=== PATIENT | female | born 1935 | race Caucasian/White ===

== ENCOUNTER 2016-12-25 12:45 | Emergency (ER) | payer BC, MEDICAID ==
[~2016-12-25] VITALS: Ht 154.9 cm; Wt 73.0 kg
--- NOTE | 2016-12-25 12:47 | NUR ---
AAOX3, BIB PRIVATE EMT FROM [facility], WORSENING CHRONIC BACK PAIN. RESP IS EVEN AND UNLABORED WITH NAD NOTED. SKIN IS WARM AND DRY. PERCOCET WAS GIVEN THIS AM. NO RECENT FALL OR TRAUMA REPORTED. AWAITING MD FOR EVAL.
--- NOTE | 2016-12-25 12:56 | NUR ---
DR RED AT BS FOR EVAL.
--- NOTE | 2016-12-25 13:07 | NUR ---
PAGED DR.HOOMAN MARTINEZ
[2016-12-25] MEDS ORDERED: AMLO5TAB2 PO (13:08)
[2016-12-25] MEDS ORDERED: OXYB5TAB11 PO (13:08)
[2016-12-25] MEDS ORDERED: ASCO500T8 PO (13:08)
[2016-12-25] MEDS ORDERED: FENT1PAT6 TD (13:08)
[2016-12-25] MEDS ORDERED: GABA-534 PO ×2 (13:08)
[2016-12-25] MEDS ORDERED: ONDA4TAB5 PO (13:08)
[2016-12-25] MEDS ORDERED: PANT40TA4 PO (13:08)
[2016-12-25] MEDS ORDERED: TRIA80CR12 TP (13:08)
[2016-12-25] MEDS ORDERED: DOCU-270 PO (13:08)
[2016-12-25] MEDS ORDERED: ACID1TAB12 PO (13:08)
[2016-12-25] MEDS ORDERED: DULO30CA2 PO (13:08)
[2016-12-25] MEDS ORDERED: MULT-659 PO (13:08)
[2016-12-25] MEDS ORDERED: AMIN30LI4 PO (13:08)
[2016-12-25] MEDS ORDERED: ALPR0.5T8 PO (13:08)
[2016-12-25] MEDS ORDERED: ACET-868 PO (13:08)
[2016-12-25] MEDS ORDERED: SERT100T12 PO (13:08)
[2016-12-25] MEDS ORDERED: TEMA30CA PO (13:08)
[2016-12-25] MEDS ORDERED: OXYC-34 PO (13:08)
[2016-12-25] MEDS ORDERED: MENT113G5 TP (13:08)
[2016-12-25] MEDS ORDERED: MAGN400O6 PO (13:08)
[2016-12-25] MEDS ORDERED: SIMV10TA6 PO (13:08)
[2016-12-25] MEDS ORDERED: CLOT15CR4 TP (13:08)
--- NOTE | 2016-12-25 13:20 | NUR ---
CALLED [facility] FOR TRANSPORT BACK TO [facility], ETA 1 HOUR-1 HOUR AND A HALF
--- NOTE | 2016-12-25 14:20 | NUR ---
ASSISTED PATIENT TO THE RESTROOM VIA WHEELCHAIR. PATIENT APPEARS STABLE AT THIS TIME.
[2016-12-25] MEDS ORDERED: oxyCODONE/APAP (5/325 MG) 1 UDTAB TABLET ONE (14:22)
[2016-12-25] MEDS ORDERED: oxyCODONE/APAP (5/325 MG) 1 UDTAB TABLET PO ONE (14:30)
[2016-12-25 15:15] VITALS: BP 147/83
--- NOTE | 2016-12-25 15:15 | NUR ---
Patient discharged to home in stable condition. Written and verbal after care instructions given. Patient verbalizes understanding of instruction.
== END 2016-12-25 15:25 | disposition home or self-care (01) ==
LOC: ER 12:49
DX: M54.16 Radiculopathy, lumbar region (principal); M54.12 Radiculopathy, cervical region; G89.29 Other chronic pain; I10 Essential (primary) hypertension; K21.9 Gastro-esophageal reflux disease without esophagitis; N32.81 Overactive bladder; G89.4 Chronic pain syndrome; F41.9 Anxiety disorder, unspecified; G62.9 Polyneuropathy, unspecified; G47.00 Insomnia, unspecified; D64.9 Anemia, unspecified; Z88.2 Allergy status to sulfonamides; Z88.1 Allergy status to other antibiotic agents
CPT/HCPCS: A4606; Z7610

== ENCOUNTER 2024-05-07 15:08 | Inpatient (IN) | payer MEDICARE, OTHER ==
[~2024-05-07] VITALS: Ht 144.8 cm; Wt 54.5 kg
[~2024-05-07 15:08] MED LIST: ACET-868 PO; ACID1TAB12 PO; ALPR0.5T8 PO; AMIN30LI4 PO; AMLO-212 PO; ASCO500T87 PO; CLOT15CR4 TP; DOCU-270 PO; DULO30CA2 PO; FENT1PAT6 TD; GABA-534 PO; MAGN400O6 PO; MENT113G5 TP; MULT-659 PO; ONDA4TAB5 PO; OXYB5TAB16 PO; OXYC-133 PO; PANT40TA49 PO; SERT100T12 PO; SIMV10TA98 PO; TEMA30CA PO; TRIA80CR12 TP
[2024-05-07] MEDS: IV NS 0.9% 1,000 ML BAG IV ONE (15:30)
[2024-05-07 15:55] LABS: BASOPHILS % (AUTO) 0.6 % (0.0-2.0); EOSINOPHILS # (AUTO) 0.3 K/uL (0.0-0.7); EOSINOPHILS % (AUTO) 5.3 % (0.0-6.0); HEMATOCRIT 35 % (33-45); HEMOGLOBIN 12.1 g/dL (11.5-14.8); LYMPHOCYTES # (AUTO) 1.1 K/uL (0.8-4.8); LYMPHOCYTES % (AUTO) 20.5 % (20.0-44.0); MEAN CORPUSCULAR HEMOGLOBIN 32 PG (26.0-33.0); MEAN CORPUSCULAR HGB CONC 35 g/dl (31.0-36.0); MEAN CORPUSCULAR VOLUME 93 fL (82-100); MONOCYTES # (AUTO) 0.6 K/uL (0.1-1.30); MONOCYTES % (AUTO) 11.8 % (2.0-12.0); NEUTROPHILS # (AUTO) 3.2 K/uL (1.8-8.9); NEUTROPHILS % (AUTO) 61.8 % (43.0-81.0); PLATELET COUNT (AUTO) 347 K/uL (150-450); RED BLOOD CELL COUNT(AUTO) 3.75 MIL/uL (4.0-5.2); RED CELL DISTRIBUTION WIDTH 14.4 % (11.5-15.0); WHITE BLOOD COUNT (AUTO) 5.1 K/uL (4.3-11.0)
[2024-05-07] MEDS: ACETAMINOPHEN ES 500 MG TABLET PO ONE (15:58)
[2024-05-07 16:05] LABS: INR 1.06 (0.91-1.10); PARTIAL THROMBOPLASTIN TIME 25.9 SEC (24.3-34.3); PROTHROMBIN TIME 11.2 SECS (9.2-11.1)
[2024-05-07 16:07] LABS: ALANINE AMINOTRANSFERASE 14 U/L (12-78); ALBUMIN 3.1 g/dL (3.4-5.0); ALKALINE PHOSPHATASE 64 U/L (46-116); ASPARTATE AMINOTRANSFERASE 15 U/L (15-37); BILIRUBIN,DIRECT 0.1 mg/dL (0.0-0.2); BILIRUBIN,TOTAL 0.4 mg/dL (0.2-1.0); CALCIUM, SERUM 8.8 mg/dL (8.5-10.1); CARBON DIOXIDE 27 mmol/L (21-32); CHLORIDE 101 mmol/L (98-107); CREATININE 1.2 mg/dL (0.6-1.3); GLUCOSE 162 mg/dL (74-106); POTASSIUM 3.4 mmol/L (3.5-5.1); SODIUM SERUM 138 mmol/L (136-145); TOTAL PROTEIN, SERUM 7.8 g/dL (6.4-8.2); UREA NITROGEN, BLOOD 41 mg/dL (7-18)
[2024-05-07 16:11] LABS: LACTIC ACID 1.2 mmol/L (0.4-2.0)
[2024-05-07] MEDS ORDERED: LIDO30AD10 TP (16:27)
[2024-05-07] MEDS ORDERED: MAGN400T8 PO (16:27)
[2024-05-07] MEDS ORDERED: OMEG100037 PO (16:27)
[2024-05-07] MEDS ORDERED: OMEP20CA15 PO (16:27)
[2024-05-07] MEDS ORDERED: CRAN300T PO (16:27)
[2024-05-07] MEDS ORDERED: MELA3TAB41 PO (16:27)
[2024-05-07] MEDS ORDERED: NAPR-1126 PO (16:27)
[2024-05-07] MEDS ORDERED: HYDR28.32 TP (16:27)
[2024-05-07] MEDS ORDERED: FERR325T23 PO (16:27)
[2024-05-07] MEDS ORDERED: CALC-261 PO (16:27)
[2024-05-07] MEDS ORDERED: DICL100G34 TP (16:27)
[2024-05-07] MEDS ORDERED: DULO20CA PO (16:27)
[2024-05-07] MEDS ORDERED: ACID1CAP3 PO (16:27)
[2024-05-07] MEDS ORDERED: TRAZ-182 PO (16:27)
[2024-05-07] MEDS ORDERED: BUPR150F3 BU (16:27)
[2024-05-07 16:31] LABS: APPEARANCE,URINE TURBID (CLEAR); BILIRUBIN,URINE 2+ (NEGATIVE); BLOOD, URINE 1+ Ery/uL (NEGATIVE); COLOR,URINE YELLOW (YELLOW); KETONES,URINE TRACE mg/dL (NEGATIVE); LEUKOCYTE ESTERASE ,URINE 2+ (NEGATIVE); NITRITE, URINE NEGATIVE (NEGATIVE); PROTEIN,URINE 1+ mg/dl (NEGATIVE); UGLUCOSE NEGATIVE (NEGATIVE); UROBILINOGEN,URINE 0.2 EU/dL (0.2)
[2024-05-07 16:36] LABS: ADD URINE CULTURE YES; BACTERIA,URINE 1+ /HPF (None Seen)
[2024-05-07 16:37] LABS: WBC,URINE 51-80 /HPF (0-3)
[2024-05-07] MEDS: DIGOXIN INJ 0.5 MG/2 ML AMPUL IV ONE (16:50)
[2024-05-07] MEDS: CEFTRIAXONE 1GM BAG (ER ONLY) 1 GM/50 ML PIGGYBACK IV ONE (16:58)
[2024-05-07] MEDS ORDERED: Z GUARD REMEDY 4 OZ OINT TP PRN (18:00)
[2024-05-07] MEDS ORDERED: MAGNESIUM HYDROXIDE 30 ML UDC PO PRN (18:00)
[2024-05-07] MEDS: GABAPENTIN 300 MG CAPSULE PO SCH (22:43)
[2024-05-07] MEDS: SIMVASTATIN 10 MG TABLET PO SCH (22:43)
[2024-05-07] MEDS: TRAZODONE 50 MG TABLET PO SCH (22:43)
[2024-05-07] MEDS ORDERED: POTASSIUM CHLORIDE 10 MEQ TABLET.SA ONE (22:44)
[2024-05-07] MEDS: Magnesium 1GM/D5W 100ML PREMIX 100 ML IV SCH (22:45)
[2024-05-07] MEDS: POTASSIUM CHLORIDE 10 MEQ TABLET.SA PO ONE (22:57)
[2024-05-08] VITALS (7 sets, daily range): BP systolic 132–164; BP diastolic 93–118; TEMP 97.5–98.6; O2SAT 96–98
[2024-05-08] MEDS: IV NS 0.9% 1,000 ML IV PRN (01:46)
[2024-05-08] MEDS ORDERED: ENOXAPARIN SODIUM 60 MG/0.6 ML DISP.SYRIN SQ SCH (06:00)
[2024-05-08] MEDS: ENOXAPARIN SODIUM 60 MG/0.6 ML DISP.SYRIN SQ SCH (06:06)
[2024-05-08 06:46] LABS: BASOPHILS % (AUTO) 0.5 % (0.0-2.0); EOSINOPHILS # (AUTO) 0.4 K/uL (0.0-0.7); EOSINOPHILS % (AUTO) 7.7 % (0.0-6.0); HEMATOCRIT 33 % (33-45); HEMOGLOBIN 11.2 g/dL (11.5-14.8); LYMPHOCYTES # (AUTO) 1.2 K/uL (0.8-4.8); LYMPHOCYTES % (AUTO) 22.5 % (20.0-44.0); MEAN CORPUSCULAR HEMOGLOBIN 32 PG (26.0-33.0); MEAN CORPUSCULAR HGB CONC 34 g/dl (31.0-36.0); MEAN CORPUSCULAR VOLUME 94 fL (82-100); MONOCYTES # (AUTO) 0.7 K/uL (0.1-1.30); MONOCYTES % (AUTO) 12.7 % (2.0-12.0); NEUTROPHILS # (AUTO) 2.9 K/uL (1.8-8.9); NEUTROPHILS % (AUTO) 56.6 % (43.0-81.0); PLATELET COUNT (AUTO) 304 K/uL (150-450); RED BLOOD CELL COUNT(AUTO) 3.52 MIL/uL (4.0-5.2); RED CELL DISTRIBUTION WIDTH 14.2 % (11.5-15.0); WHITE BLOOD COUNT (AUTO) 5.2 K/uL (4.3-11.0)
[2024-05-08 07:14] LABS: CALCIUM, SERUM 8.5 mg/dL (8.5-10.1); CARBON DIOXIDE 28 mmol/L (21-32); CHLORIDE 100 mmol/L (98-107); CREATININE 0.8 mg/dL (0.6-1.3); GLUCOSE 106 mg/dL (74-106); MAGNESIUM 2.2 mg/dL (1.8-2.4); PHOSPHORUS 2.4 mg/dL (2.5-4.9); POTASSIUM 3.2 mmol/L (3.5-5.1); SODIUM SERUM 138 mmol/L (136-145); UREA NITROGEN, BLOOD 24 mg/dL (7-18)
[2024-05-08] MEDS: PANTOPRAZOLE 40 MG TABLET.DR PO SCH (07:30)
[2024-05-08] MEDS ORDERED: AMIODARONE 150 MG in IV D5W 100 ML IV ONE (08:00)
[2024-05-08] MEDS ORDERED: AMIODARONE 450 MG in IV D5W 250 ML IV PRN (08:00)
[2024-05-08] MEDS: POTASSIUM CHLORIDE 20 MEQ TAB.PRT.SR PO SCH (08:00)
[2024-05-08] MEDS: AMIODARONE 150 MG in IV D5W 100 ML IV ONE (08:43)
[2024-05-08] MEDS: DULOXETINE HCL 20 MG CAPSULE.DR PO SCH (09:00)
[2024-05-08] MEDS: FERROUS SULFATE (325 MG) 325 MG/TAB TABLET PO SCH (09:00)
[2024-05-08] MEDS: DOCUSATE SODIUM 100 MG CAPSULE PO SCH (09:00)
[2024-05-08] MEDS ORDERED: BUPRENORPHINE HCL 150 MCG BU SCH (09:00)
[2024-05-08] MEDS: OXYBUTYNIN CHLORIDE 5 MG TABLET PO SCH (09:00)
[2024-05-08] MEDS: AMIODARONE 450 MG in IV D5W 241 ML IV PRN (09:05)
[2024-05-08] MEDS: POTASSIUM CL. PREMIX PERIPHER. 50 ML IV SCH (11:34)
[2024-05-08] MEDS: K PHOS NEUTRAL 250 MG TABLET PO ONE (15:57)
[2024-05-08] MEDS: CEFTRIAXONE 1 G in IV D5W 50 ML IV SCH (17:05)
[2024-05-08] MEDS: ONDANSETRON HCL/PF 4 MG/2 ML VIAL IVP PRN (20:27)
[2024-05-08] MEDS ORDERED: ENOXAPARIN SODIUM 80 MG/0.8 ML DISP.SYRIN SQ SCH (21:30)
[2024-05-09] VITALS: BP 155/111; TEMP 98.4; O2SAT 95
[2024-05-09 04:00] VITALS: BP 139/111; TEMP 99.5; O2SAT 95
[2024-05-09 08:00] VITALS: BP 173/120; TEMP 97.7; O2SAT 94
[2024-05-09 09:10] LABS: BASOPHILS % (AUTO) 0.2 % (0.0-2.0); EOSINOPHILS # (AUTO) 0.1 K/uL (0.0-0.7); HEMATOCRIT 37 % (33-45); HEMOGLOBIN 12.5 g/dL (11.5-14.8); LYMPHOCYTES # (AUTO) 1.1 K/uL (0.8-4.8); LYMPHOCYTES % (AUTO) 17.8 % (20.0-44.0); MEAN CORPUSCULAR HEMOGLOBIN 31 PG (26.0-33.0); MEAN CORPUSCULAR HGB CONC 34 g/dl (31.0-36.0); MEAN CORPUSCULAR VOLUME 93 fL (82-100); MONOCYTES # (AUTO) 0.7 K/uL (0.1-1.30); MONOCYTES % (AUTO) 11.4 % (2.0-12.0); NEUTROPHILS # (AUTO) 4.5 K/uL (1.8-8.9); NEUTROPHILS % (AUTO) 69.6 % (43.0-81.0); PLATELET COUNT (AUTO) 357 K/uL (150-450); RED CELL DISTRIBUTION WIDTH 14.1 % (11.5-15.0); WHITE BLOOD COUNT (AUTO) 6.4 K/uL (4.3-11.0)
[2024-05-09] MEDS: hydrALAZINE HCL 50 MG TABLET PO SCH (09:46)
[2024-05-09] MEDS: METOPROLOL TARTRATE 50 MG TABLET PO SCH (09:46)
[2024-05-09 12:00] VITALS: BP 117/85; TEMP 97.9; O2SAT 94
[2024-05-09] MEDS: GABAPENTIN 300 MG CAPSULE PO SCH (12:41)
[2024-05-09 14:05] LABS: CALCIUM, SERUM 8.4 mg/dL (8.5-10.1); CARBON DIOXIDE 23 mmol/L (21-32); CHLORIDE 91 mmol/L (98-107); CREATININE 0.6 mg/dL (0.6-1.3); GLUCOSE 142 mg/dL (74-106); MAGNESIUM 1.4 mg/dL (1.8-2.4); PHOSPHORUS 2.7 mg/dL (2.5-4.9); SODIUM SERUM 126 mmol/L (136-145); UREA NITROGEN, BLOOD 10 mg/dL (7-18)
[2024-05-09 16:00] VITALS: BP 110/73; TEMP 98.4; O2SAT 94
[2024-05-09 20:00] VITALS: BP 117/93; TEMP 100.1; O2SAT 95
[2024-05-09] MEDS: ACETAMINOPHEN 325 MG TABLET PO PRN (21:33)
[2024-05-09] MEDS: POTASSIUM CHLORIDE 20 MEQ TAB.PRT.SR PO ONE (22:00)
[2024-05-09] MEDS: GABAPENTIN 100 MG CAPSULE PO SCH (22:00)
[2024-05-10] VITALS: BP 92/62; TEMP 98.8; O2SAT 95
[2024-05-10 04:00] VITALS: BP 120/58; TEMP 97.7; O2SAT 95
[2024-05-10 07:45] LABS: BASOPHILS % (AUTO) 0.2 % (0.0-2.0); EOSINOPHILS # (AUTO) 0.1 K/uL (0.0-0.7); EOSINOPHILS % (AUTO) 1.4 % (0.0-6.0); HEMATOCRIT 34 % (33-45); HEMOGLOBIN 11.3 g/dL (11.5-14.8); LYMPHOCYTES # (AUTO) 1.3 K/uL (0.8-4.8); LYMPHOCYTES % (AUTO) 25.3 % (20.0-44.0); MEAN CORPUSCULAR HEMOGLOBIN 32 PG (26.0-33.0); MEAN CORPUSCULAR HGB CONC 34 g/dl (31.0-36.0); MEAN CORPUSCULAR VOLUME 94 fL (82-100); MONOCYTES # (AUTO) 0.9 K/uL (0.1-1.30); MONOCYTES % (AUTO) 17.3 % (2.0-12.0); NEUTROPHILS # (AUTO) 2.9 K/uL (1.8-8.9); NEUTROPHILS % (AUTO) 55.8 % (43.0-81.0); PLATELET COUNT (AUTO) 317 K/uL (150-450); RED BLOOD CELL COUNT(AUTO) 3.58 MIL/uL (4.0-5.2); RED CELL DISTRIBUTION WIDTH 14.4 % (11.5-15.0); WHITE BLOOD COUNT (AUTO) 5.2 K/uL (4.3-11.0)
[2024-05-10 08:00] VITALS: BP 115/75; TEMP 98.6; O2SAT 95
[2024-05-10 08:00] LABS: CALCIUM, SERUM 8.2 mg/dL (8.5-10.1); CARBON DIOXIDE 20 mmol/L (21-32); CHLORIDE 95 mmol/L (98-107); CREATININE 1.2 mg/dL (0.6-1.3); GLUCOSE 116 mg/dL (74-106); MAGNESIUM 1.5 mg/dL (1.8-2.4); PHOSPHORUS 3.5 mg/dL (2.5-4.9); POTASSIUM 3.1 mmol/L (3.5-5.1); SODIUM SERUM 129 mmol/L (136-145); UREA NITROGEN, BLOOD 21 mg/dL (7-18)
[2024-05-10] MEDS: Magnesium 1GM/D5W 100ML PREMIX 100 ML IV SCH (09:31)
[2024-05-10] MEDS: DILTIAZEM HCL CD 240 MG PO SCH (09:50)
[2024-05-10] MEDS: POTASSIUM CHLORIDE 20 MEQ TAB.PRT.SR PO SCH (09:51)
[2024-05-10 12:00] VITALS: BP 108/73; TEMP 98.9; O2SAT 94
[2024-05-10 16:00] VITALS: BP 103/66; TEMP 98.6; O2SAT 94
[2024-05-10 20:46] VITALS: BP 113/69; TEMP 98; O2SAT 95
[2024-05-11 00:06] VITALS: BP 116/69; TEMP 98; O2SAT 100
[2024-05-11 04:29] VITALS: BP 117/85; TEMP 97.9; O2SAT 98
[2024-05-11 07:04] LABS: BASOPHILS # (AUTO) 0.1 K/uL (0.0-0.2); BASOPHILS % (AUTO) 1.3 % (0.0-2.0); EOSINOPHILS # (AUTO) 0.3 K/uL (0.0-0.7); EOSINOPHILS % (AUTO) 5.5 % (0.0-6.0); HEMATOCRIT 34 % (33-45); HEMOGLOBIN 11.5 g/dL (11.5-14.8); LYMPHOCYTES # (AUTO) 1.4 K/uL (0.8-4.8); LYMPHOCYTES % (AUTO) 27.5 % (20.0-44.0); MEAN CORPUSCULAR HEMOGLOBIN 32 PG (26.0-33.0); MEAN CORPUSCULAR HGB CONC 34 g/dl (31.0-36.0); MEAN CORPUSCULAR VOLUME 93 fL (82-100); MONOCYTES # (AUTO) 0.7 K/uL (0.1-1.30); MONOCYTES % (AUTO) 13.6 % (2.0-12.0); NEUTROPHILS # (AUTO) 2.7 K/uL (1.8-8.9); NEUTROPHILS % (AUTO) 52.1 % (43.0-81.0); PLATELET COUNT (AUTO) 315 K/uL (150-450); RED BLOOD CELL COUNT(AUTO) 3.63 MIL/uL (4.0-5.2); RED CELL DISTRIBUTION WIDTH 14.4 % (11.5-15.0); WHITE BLOOD COUNT (AUTO) 5.3 K/uL (4.3-11.0)
[2024-05-11 07:32] LABS: CALCIUM, SERUM 8.7 mg/dL (8.5-10.1); CARBON DIOXIDE 23 mmol/L (21-32); CHLORIDE 98 mmol/L (98-107); CREATININE 0.9 mg/dL (0.6-1.3); GLUCOSE 97 mg/dL (74-106); PHOSPHORUS 2.9 mg/dL (2.5-4.9); POTASSIUM 3.5 mmol/L (3.5-5.1); SODIUM SERUM 132 mmol/L (136-145); UREA NITROGEN, BLOOD 23 mg/dL (7-18)
[2024-05-11 08:10] VITALS: BP 128/90; TEMP 97.7; O2SAT 96
[2024-05-11] MEDS: CEFEPIME 1 GM in IV D5W 50 ML IV SCH (08:44)
[2024-05-11 12:26] VITALS: BP 113/63; TEMP 97.5; O2SAT 96
[2024-05-11] MEDS ORDERED: DILT240C88 PO (12:34)
[2024-05-11] MEDS ORDERED: HYDR-4077 PO (12:34)
[2024-05-11] MEDS ORDERED: GABA100C PO (12:34)
[2024-05-11] MEDS ORDERED: MEGE400O5 PO (12:34)
[2024-05-11] MEDS ORDERED: CEFE1FRO IV (12:34)
[2024-05-11] MEDS ORDERED: METO50TA16 PO (12:34)
[2024-05-11] MEDS ORDERED: APIX2.5T PO (12:35)
[2024-05-11 12:37] VITALS: BP 113/63
[2024-05-11] MEDS ORDERED: MEGESTROL ACETATE SUSP 400 MG/10 ML UDC PO SCH (17:00)
== END 2024-05-11 15:43 | DRG 871 ==
LOC: ER 15:20 → TELE1 20:13 → TELE-TD 20:50 → TELE1 05-10 09:58
PROVIDERS: ADMIT Nurse Practitioner Family; ATTEND Student in an Organized Health Care Education/Training Program
DX: A41.9 Sepsis, unspecified organism (principal); G93.41 Metabolic encephalopathy; N39.0 Urinary tract infection, site not specified; E44.1 Mild protein-calorie malnutrition; E87.1 Hypo-osmolality and hyponatremia; N17.9 Acute kidney failure, unspecified; F03.93 Unspecified dementia, unspecified severity, with mood disturbance; E86.0 Dehydration; Z20.822 Contact with and (suspected) exposure to COVID-19; E83.42 Hypomagnesemia; E78.5 Hyperlipidemia, unspecified; E87.6 Hypokalemia; E88.09 Other disorders of plasma-protein metabolism, not elsewhere classified; G62.9 Polyneuropathy, unspecified; G89.4 Chronic pain syndrome; K21.9 Gastro-esophageal reflux disease without esophagitis; Z66 Do not resuscitate; I48.91 Unspecified atrial fibrillation; I10 Essential (primary) hypertension; M19.90 Unspecified osteoarthritis, unspecified site; M48.00 Spinal stenosis, site unspecified; F32.A Depression, unspecified; Z86.73 Personal history of transient ischemic attack (TIA), and cerebral infarction without residual deficits; Z68.26 Body mass index [BMI] 26.0-26.9, adult; B96.89 Other specified bacterial agents as the cause of diseases classified elsewhere; Z88.2 Allergy status to sulfonamides
CPT/HCPCS: 36415; 70450-TC; 71045-TC; 80048-TC; 80076-TC; 81001; 83605-TC; 83735-TC; 84100-TC; 84439-TC; 84443-TC; 84484-TC; 85025-TC; 85730-TC; 87040-TC; 93307-TC; A4223; G0378; J0282; J0692; J0696; J1160; J1650; J2405; J3475; J3480; J7030; J7050; J7060

== ENCOUNTER 2024-05-17 11:25 | Emergency (ER) | payer MEDICARE, OTHER, MEDICAID ==
[~2024-05-17] VITALS: Ht 154.9 cm; Wt 59.0 kg
[~2024-05-17 11:25] MED LIST changes: +ACID1CAP3 PO; -ACID1TAB12 PO; -ALPR0.5T8 PO; -AMIN30LI4 PO; +APIX2.5T PO; -ASCO500T87 PO; +BUPR150F3 BU; +CALC-261 PO; +CEFE1FRO IV; +CEFE1VIA3 IV; -CLOT15CR4 TP; +CRAN300T PO; +DICL100G34 TP; +DILT240C88 PO; +DULO20CA PO; -DULO30CA2 PO; -FENT1PAT6 TD; +FERR325T23 PO; +GABA100C PO; +HYDR-4077 PO; +HYDR28.32 TP; +LIDO30AD10 TP; +MAGN400T8 PO; +MEGE400O5 PO; +MELA3TAB41 PO; -MENT113G5 TP; +METO50TA16 PO; -MULT-659 PO; +NAPR-1126 PO; +OMEG100037 PO; +OMEP20CA15 PO; -OXYC-133 PO; -PANT40TA49 PO; -SERT100T12 PO; -TEMA30CA PO; +TRAZ-182 PO
[2024-05-17] MEDS: IV NS 0.9% 1,000 ML BAG IV ONE (11:30)
[2024-05-17] MEDS ORDERED: DILTIAZEM HCL 25 MG IV ONE (12:02)
[2024-05-17] MEDS ORDERED: Magnesium 1GM/D5W 100ML PREMIX 100 ML IV ONE ×2 (12:03→13:44)
[2024-05-17] MEDS ORDERED: CRAN3875 PO (12:12)
[2024-05-17] MEDS ORDERED: CRAN425C6 PO (12:12)
[2024-05-17 12:15] LABS: BASOPHILS # (AUTO) 0.1 K/uL (0.0-0.2); BASOPHILS % (AUTO) 1.1 % (0.0-2.0); EOSINOPHILS # (AUTO) 0.2 K/uL (0.0-0.7); EOSINOPHILS % (AUTO) 3.4 % (0.0-6.0); HEMATOCRIT 37 % (33-45); HEMOGLOBIN 12.6 g/dL (11.5-14.8); LYMPHOCYTES # (AUTO) 1.4 K/uL (0.8-4.8); LYMPHOCYTES % (AUTO) 21.6 % (20.0-44.0); MEAN CORPUSCULAR HEMOGLOBIN 32 PG (26.0-33.0); MEAN CORPUSCULAR HGB CONC 34 g/dl (31.0-36.0); MEAN CORPUSCULAR VOLUME 93 fL (82-100); MONOCYTES # (AUTO) 0.9 K/uL (0.1-1.30); MONOCYTES % (AUTO) 12.9 % (2.0-12.0); PLATELET COUNT (AUTO) 407 K/uL (150-450); RED BLOOD CELL COUNT(AUTO) 3.95 MIL/uL (4.0-5.2); RED CELL DISTRIBUTION WIDTH 15.4 % (11.5-15.0); WHITE BLOOD COUNT (AUTO) 6.6 K/uL (4.3-11.0)
[2024-05-17] MEDS: DILTIAZEM HCL 25 MG IV IV STA (12:16)
[2024-05-17] MEDS: Magnesium 1GM/D5W 100ML PREMIX 200 ML IV ONE (12:20)
[2024-05-17 12:28] LABS: CALCIUM, SERUM 9.5 mg/dL (8.5-10.1); CARBON DIOXIDE 27 mmol/L (21-32); CHLORIDE 103 mmol/L (98-107); CREATININE 0.8 mg/dL (0.6-1.3); GLUCOSE 126 mg/dL (74-106); SODIUM SERUM 139 mmol/L (136-145); UREA NITROGEN, BLOOD 36 mg/dL (7-18)
[2024-05-17 12:38] LABS: LACTIC ACID 0.9 mmol/L (0.4-2.0)
[2024-05-17 12:48] LABS: POTASSIUM 2.7 mmol/L (3.5-5.1)
[2024-05-17] MEDS ORDERED: IOHEXOL-350 100 ML VIAL IV ONE (12:48)
[2024-05-17] MEDS ORDERED: IV NS 0.9% 250 ML IV ONE (12:48)
[2024-05-17 13:00] LABS: INR 1.03 (0.91-1.10); PROTHROMBIN TIME 10.9 SECS (9.2-11.1)
[2024-05-17 17:12] VITALS: BP 130/78; TEMP 98.6; O2SAT 98
== END 2024-05-17 17:00 ==
LOC: ER 11:31
DX: I63.9 Cerebral infarction, unspecified (principal); I10 Essential (primary) hypertension; K21.9 Gastro-esophageal reflux disease without esophagitis; G47.00 Insomnia, unspecified; G93.49 Other encephalopathy; E87.6 Hypokalemia; I48.20 Chronic atrial fibrillation, unspecified; G89.4 Chronic pain syndrome; N32.81 Overactive bladder; Z79.899 Other long term (current) drug therapy; Z88.2 Allergy status to sulfonamides
CPT/HCPCS: 99291; 70498; 96365; 71045; 96361; 96375; 93005; 70496; 85025; 80048; 87040; 83605; 36415; 84484; 85730; 82962; 70450; J3490; J7030; J7050; J3475 ×2; Q9967; A4223